=== PATIENT | female | born 1955 | race Caucasian/White ===

== ENCOUNTER → 2016-07-03 | Outpatient (CLI) | payer OTHER ==
[~2016-07-03] MED LIST: ABL/5 PO; ACET-1138 PO; APRE1TAB3 PO; ASCA500 PO; ASPI81TA28 PO; BUPRTAB PO; BUPRTAB51 PO; CALC500T68 PO; CLB/200 PO; CRAN500C2 PO; GUAI1TAB75 PO; LACTCAP3 PO; LAMO100T16 PO; LEVO75TA PO; LIDO5DIS10 TD; LORA1TAB13 PO; MORP-157 PO; MULTTAB58 PO; OMEGCAP2 PO; OMEP20CA9 PO; ONDA8TAB6 PO; POLY335040 PO; PRED10TA PO; RXC5 PO; SNK PO; SULF500T36 PO; VOLTAREN GEL TOP; [UNRECOGNIZED DRUG - CODE] PO
--- NOTE | 2016-07-03 16:39 | MAMMOGRAPHY REPORT ---
BILATERAL DIGITAL SCREENING MAMMOGRAM TOMOSYNTHESIS WITH CAD: 07/03/2016 CLINICAL HISTORY: Routine screening. Patient has no complaints. TECHNIQUE: Breast tomosynthesis in addition to standard 2D mammography was performed. Current study was also evaluated with a Computer Aided Detection (CAD) system. COMPARISON: Comparison is made to exams dated: 06/07/2015 mammogram, 01/13/2013 mammogram, 01/26/2014 mammogram, 01/13/2012 mammogram, 10/04/2010 mammogram, and 09/10/2009 mammogram - [facility]. BREAST COMPOSITION: The tissue of both breasts is heterogeneously dense, which may obscure small ma sses. FINDINGS: No suspicious masses, calcifications, or areas of architectural distortion are noted in e ither breast. There has been no significant interval change compared to prior exams. Scattered bilat eral benign-appearing calcifications are not significantly changed. Nodular asymmetry in the left l ateral breast middle depth on the cc view is stable dating back to at least the 2008 exam, and is co nsidered benign given long-term stability. IMPRESSION: ACR BI-RADS CATEGORY 2: BENIGN There is no mammographic evidence of malignancy. A 1 year screening mammogram is recommended. The p atient will receive written notification of the results. Approximately 10% of breast cancers are not detected with mammography. A negative mammographic repor t should not delay biopsy if a clinically suggestive mass is present. Jackie Kay M.D. /:07/03/2016 15:35:21 [employer] Consultant: Mendez HARRIS(Juliane)(Marina), [facility] letter sent: Normal 1/2 BI-RADS Code: ACR BI-RADS Category 2: Benign
== END | disposition home or self-care (01) ==
LOC: C.MAMM 13:22
PROVIDERS: ATTEND Obstetrics & Gynecology
DX: Z12.31 Encounter for screening mammogram for malignant neoplasm of breast (principal)

== ENCOUNTER 2016-07-14 09:12 | Inpatient (IN) | payer OTHER ==
[2016-06-19 15:02] VITALS: BMI 33.0
[2016-06-19 15:27] LABS: URINE APPEARANCE CLEAR (CLEAR); URINE BILIRUBIN NEG (NEG); URINE COLOR DK YELLOW; URINE NITRITE NEG (NEG); URINE PH 5.5 (4.5-7.5); URINE SPECIFIC GRAVITY 1.008 (1.000-1.030); UROBILINOGEN NEG (NEG); ZZUR CULT IF INDIC CLEAN CATCH NO
--- NOTE | 2016-06-19 15:34 | PAT Medication Instructions ---
Service Date Jun 19, 2016. Current Home Medication List Apremilast (Otezla), 30 MG PO BID Aripiprazole (Abilify), 5 MG PO BID Ascorbic Acid (Vitamin C), 500 MG PO BID Aspirin (Aspirin Ec), 81 MG PO QAM Biotin (Biotin Forte), 6,000 MCG PO QAM Bupropion Hcl (Wellbutrin Xl), 150 MG PO QAM Bupropion Hcl (Wellbutrin Xl), 300 MG PO QAM Calcium W/ Magnesium (Calcium/Magnesium), 1 TAB PO BID Celecoxib (CeleBREX), 200 MG PO BID Cranberry (Vaccinium Macrocarp (Cranberry), 500 MG PO BID Guaifenesin La (Guaifenesin Er), 1,200 MG PO Q12H Lactobacillus (Acidophilus), 100 MG PO QAM Lamotrigine (Lamictal), 300 MG PO HS Levothyroxine Sodium (Synthroid), 75 MCG PO QAM Lidocaine (Lidoderm Patch 5% Patch), 1-3 PATCH TD DAILY PRN for RN Lorazepam (Lorazepam), 1-2 MG PO DAILY PRN Multiple Vitamin (Multivitamin), 1 TABLET PO QAM Brinson-3 Fatty Acids (Fish Oil), 1 CAPSULE PO BID Omeprazole (Prilosec), 20 MG PO QAM Polyethylene (Miralax Powder Packet), 17 GM PO DAILY PRN Prednisone Tab (Prednisone), 10 MG PO QAM Sulfasalazine (Azulfidine), 1,500 MG PO BID [Voltaren Gel], 1 DOSE TOP PRN Medication Instructions For Your Scheduled Surgery - Hold the following medications 2 weeks prior to surgery: Cranberry (Vaccinium Macrocarp (Cranberry), 500 MG PO BID Brinson-3 Fatty Acids (Fish Oil), 1 CAPSULE PO BID Biotin (Biotin Forte), 6,000 MCG PO QAM - Hold the following medications 24 hours prior to surgery: [Voltaren Gel], 1 DOSE TOP PRN - May continue but NOT around operative area day of surgery: Lidocaine (Lidoderm Patch 5% Patch), 1-3 PATCH TD DAILY PRN - Hold the following medications the morning of surgery: Polyethylene (Miralax Powder Packet), 17 GM PO DAILY PRN Multiple Vitamin (Multivitamin), 1 TABLET PO QAM Celecoxib (CeleBREX), 200 MG PO BID (otherwise okay to continue per surgeon) Ascorbic Acid (Vitamin C), 500 MG PO BID Calcium W/ Magnesium (Calcium/Magnesium), 1 TAB PO BID Guaifenesin La (Guaifenesin Er), 1,200 MG PO Q12H Lactobacillus (Acidophilus), 100 MG PO QAM - Take the following medications the morning of surgery with a sip of water OTHERWISE NOTHING TO EAT OR DRINK AFTER MIDNIGHT: Aripiprazole (Abilify), 5 MG PO BID Prednisone Tab (Prednisone), 10 MG PO QAM Aspirin (Aspirin Ec), 81 MG PO QAM Bupropion Hcl (Wellbutrin Xl), 150 MG PO QAM Bupropion Hcl (Wellbutrin Xl), 300 MG PO QAM Lorazepam (Lorazepam), 1-2 MG PO DAILY PRN Omeprazole (Prilosec), 20 MG PO QAM Sulfasalazine (Azulfidine), 1,500 MG PO BID Levothyroxine Sodium (Synthroid), 75 MCG PO QAM Apremilast (Otezla), 30 MG PO BID - Take the following medications as scheduled the night before surgery: Aripiprazole (Abilify), 5 MG PO BID Celecoxib (CeleBREX), 200 MG PO BID Lamotrigine (Lamictal), 300 MG PO HS Ascorbic Acid (Vitamin C), 500 MG PO BID Calcium W/ Magnesium (Calcium/Magnesium), 1 TAB PO BID Guaifenesin La (Guaifenesin Er), 1,200 MG PO Q12H Sulfasalazine (Azulfidine), 1,500 MG PO BID Apremilast (Otezla), 30 MG PO BID If you have any questions please call us at [phone] (Rosanne Virgen PA-C) or [phone] or [phone]
[2016-06-19 15:45] LABS: BASO % 0.2 %; BASO ABS # 0.02 K/uL (0-0.2); COMPLETE YES; EOS % 0.4 %; HEMATOCRIT 33.2 % (37-47); IG% 0.5 %; LYMPH % 13.7 %; LYMPH ABS # 1.56 K/uL (1.2-3.4); MEAN CELL VOLUME 81.2 fL (80-100); MEAN CORPUSCULAR HEMOGLOBIN 26.4 pg (25-34); MEAN CORPUSCULAR HGB CONC 32.5 g/dl (32-36); MEAN PLATELET VOLUME 8.7 fL (7.4-10.4); MONO % 8.1 %; NEUT % 77.1 %; PLATELET COUNT 287 K/uL (130-400); RED BLOOD COUNT 4.09 M/uL (4.2-5.4); WHITE BLOOD COUNT 11.35 K/uL (4.8-10.8)
[2016-06-19 15:47] LABS: MANUAL MICROSCOPIC REQUIRED? NO; REVIEW REQ? NO
[2016-06-19 15:52] LABS: INR 1.1 (0.9-1.1); PARTIAL THROMBOPLASTIN RATIO 1.2; PROTHROMBIN TIME (PATIENT) 11.7 SECONDS (9.0-12.0)
[2016-06-19 16:17] LABS: BUN/CREATININE RATIO 26.6 (10-20); CALCIUM 9.1 mg/dl (8.5-10.1); CREATININE 0.77 mg/dl (0.60-1.20); POTASSIUM 4.4 mmol/L (3.5-5.1)
--- NOTE | 2016-07-07 07:13 | INTERNAL MEDICINE CONSULTATION ---
DATE OF CONSULTATION: 07/14/2016 PREOPERATIVE NOTE A 60-year-old female scheduled to undergo a left total knee arthroplasty by Dr. Zacarias Shay on 07/14/2016 because of severely advanced osteoarthritis. Her medical problems include: 1. Psoriatic arthritis. 2. Severe osteoarthritis. 3. She has had multiple orthopedic procedures including bilateral total hip arthroplasty and right total knee arthroplasty. 4. Bipolar disorder. 5. Osteoporosis. 6. Hypothyroidism. 7. Chronic steroid therapy. 8. Gastroesophageal reflux. CURRENT MEDICATIONS: Include: 1. Abilify 5 mg twice a day. 2. Vitamin C 500 mg twice a day. 3. Aspirin 81 mg daily. 4. Wellbutrin-XL 150 mg daily. 5. Wellbutrin-XL 300 mg every morning also for a combination of 450 mg daily. 6. Celebrex 200 mg twice a day. 7. Guaifenesin ER 1200 mg twice a day. 8. Lamictal 100 mg tablets, she takes 300 mg at bedtime. 9. Levothyroxine 75 mcg daily. 10. Lidoderm 5% patch to apply to affected area, 1-3 patch daily as needed. 11. Lorazepam 1 mg 1-2 tablets as needed. 12. Multivitamin 1 daily. 13. MiraLax 17 grams daily as needed. 14. Prednisone 10 mg daily. 15. Sulfasalazine 500 mg tablet, she takes 3 tablets twice a day or 1500 mg twice a day. 16. Otezla 30 mg twice a day. 17. Biotin 6000 mcg daily. 18. Calcium with magnesium 1 tablet twice a day. 19. Cranberry 500 mg twice a day. 20. Lactobacillus 1 capsule of 100 mg daily. 21. [place]-3 fatty acid 1 capsule twice a day. 22. Omeprazole 20 mg daily. 23. Voltaren gel to apply to affected painful joint daily. 24. Keflex 500 mg 4 times a day which is being treated for cellulitis of the left lower leg secondary to recent injury. Overall, she is doing quite well. She denied any headache. No dizziness, no lightheadedness. No earache, no sore throat, no neck pain. Denied any chest pain, pressure or tightness. No shortness of breath. No abdominal pain, no nausea, no vomiting. No problem with her bowel movements. No problem urinating. She does have chronic pain in her back and joints. PHYSICAL EXAMINATION: GENERAL: Well developed, in no distress. Weight 194 pounds, height 64 inches, BMI 33.3. VITAL SIGNS: Blood pressure 128/70, pulse 88 and regular, temperature 97.8. SKIN: Warm and dry. No evidence of any rash. HEENT: She does wear glasses. She has had prior cataract surgery. Normal oronasal and pharyngeal mucosa. Ears were normal. NECK: Supple without any adenopathy or thyromegaly. No JVD. Normal carotid pulses. No carotid bruit. HEART: Regular heart sounds without any murmur, rub or gallop. LUNGS: Clear. Normal breath sounds. ABDOMEN: Soft, nontender, without organomegaly or masses. BACK: No spinal tenderness. EXTREMITIES: Minimal chronic edema. No clubbing, no cyanosis. Multiple surgical scars related to prior orthopedic procedures. Good pulses. NEUROLOGIC: She is alert and oriented. There is no evidence of any lateralized deficit. LABORATORY TESTS: Done on 06/19/2016, WBC count 11,350, hemoglobin 10.8, hematocrit 33.2, platelet count 287,000. Prothrombin time 11.7, INR 1.1, PTT 30.6. Sodium 141, potassium 4.4, chloride 105, CO2 26, BUN 21, creatinine 0.77, glucose 114, this is a random number, calcium 8.1, albumin 3.1. ASSESSMENT: 1. Preoperative evaluation. 2. The patient is scheduled for a left total knee arthroplasty on 07/14/2016. 3. Recent cellulitis of the left lower leg, but on examination today there is no finding of any inflammation, whatsoever. 4. Psoriatic arthritis. 5. Bipolar disorder. 6. Hypothyroidism. 7. Gastroesophageal reflux. PLAN: 1. All her laboratory tests have been reviewed. 2. Her cellulitis is completely resolved. 3. The patient is scheduled for surgery, she had all her preoperative tests, she is in a stable condition and I do not see any contraindication to her anticipated surgery.
--- NOTE | 2016-07-11 15:30 | HISTORY & PHYSICAL EXAMINATION ---
DATE OF ADMISSION: 07/14/2016 CHIEF COMPLAINT: Left knee pain. HISTORY OF PRESENT ILLNESS: Ms. Kendall is a 60-year-old female with a multiple-year history of pain in her left knee. The patient rates her pain a 9/10. She has had various treatments over the years including anti-inflammatories and injections without relief. She has failed conservative treatment and is scheduled for her left knee replacement. PAST MEDICAL HISTORY: Anxiety, bipolar disorder, thyroid disease. She denies heart disease, diabetes or DVT. PAST SURGICAL HISTORY: Bilateral total hip arthroplasty, right total knee replacement, tubal ligation. SOCIAL HISTORY: The patient denies alcohol or tobacco use. She lives in a single story home. She lives alone and is retired. FAMILY HISTORY: Negative for DVT. Positive for CVA. MEDICATIONS: Prednisone 10 mg daily, Celebrex 200 mg daily, sulfasalazine 500 mg 3 tablets b.i.d., Otezla 30 mg b.i.d., Lidoderm 5% 3 patches daily as needed, Voltaren gel 4 grams daily on lower extremities, Abilify 10 mg half tablet b.i.d., Wellbutrin 450 mg daily, Lamictal 300 mg at bedtime, Ativan 1 mg p.r.n., Prilosec 20 mg daily, levothyroxine 75 mcg daily, aspirin 81 mg daily, multivitamin, calcium, magnesium, vitamin C, fish oil, acidophilus, cranberry, biotin, MiraLax. ALLERGIES: LASIX, EFFEXOR AND LITHIUM. REVIEW OF SYSTEMS: See HPI. Ten other systems reviewed, all negative. PHYSICAL EXAMINATION: VITAL SIGNS: Height 5 foot 4, weight 192 pounds, BMI not calculated. GENERAL: This is a well-developed, well-nourished female who is alert and oriented x3. Mood and affect are appropriate. HEAD, EYES, EARS, NOSE, AND THROAT: Normocephalic, atraumatic. Mucous membranes are moist and intact. NECK: Supple without lymphadenopathy. HEART: Regular rate and rhythm without murmurs, rubs or gallops. LUNGS: Clear to auscultation without wheezes or rhonchi. ABDOMEN: Soft and nontender. Bowel sounds are equal and active. EXTREMITIES: No ecchymosis, redness or warmth. She has a valgus deformity. Range of motion is from 5-115 with +2 laxity bilaterally. She is neurovascularly intact with +5/5 strength. She does have some cellulitis distally at the time of exam, she has moderate edema. X-RAY EXAMINATION: AP and lateral views show joint space narrowing and osteophyte formation. IMPRESSION: Degenerative joint disease left knee. PLAN: The patient will be admitted for a left total knee arthroplasty. She will require steroid prep preoperatively. PCP is Dr. Orr. She is planning to go to [facility] upon discharge.
[~2016-07-14] VITALS: Ht 162.6 cm; Wt 87.2 kg
[2016-07-14] VITALS (7 sets, daily range): BP systolic 127–164; BP diastolic 77–88; PULSE 76–92; TEMP 36.4–36.8; O2SAT 94–98; Ht 162.6 cm; Wt 87.2 kg
[~2016-07-14 09:12] MED LIST changes: -ACET-1138 PO; +ACETAMINOPHEN 500 MG TAB PO SCH; +ARIPIprazole TAB 5 MG TAB PO SCH; +BUPIVACAINE 0.25% 30 ML VIAL ONE; +BUPIVACAINE 0.5 % 5 MG/1 ML PF 10ML VIAL ONE; +BuPROPion XL 150 MG TABCR PO SCH; +CEFAZOLIN 2000 MG/60 ML D5W 60 ML IV SCH; +CeleBREX 200 MG CAP PO SCH; +FAMOTIDINE 20 MG TAB PO SCH; +FENTANYL CITRATE INJ 50 MCG/1 ML 2 ML VIAL ONE; +GABAPENTIN 300 MG CAP PO SCH; +HYDROCORTISONE IV 100 MG in SYRINGE 0 ML IV SCH; +LACTATED RINGER'S 1000ML 1,000 ML IV SCH; +LACTATED RINGER'S 1000ML 500 ML IV ONE; +LACTATED RINGER'S 1000ML IV SCH; +LIDOCAINE HCL 2% 2 ML VIAL (20MG/ML) ONE; +METOCLOPRAMIDE HCL 10 MG TAB PO SCH; +MIDAZOLAM HCL 1 MG/ML 2ML VIAL ONE; -MORP-157 PO; -ONDA8TAB6 PO; +ONDANSETRON INJ 2 MG/ML 2 ML VIAL ONE; +OXYCODONE HCL 10 MG TABCR (OXYCONTIN) PO SCH; +POLYMYXIN B SULFATE 100,000 UNITS in NSS 100ML IR SCH; +PROPOFOL IV EMULSION 10 MG/ML 20 ML VIAL IV ONE; +ROPIVACAINE 5MG/ML 30 ML 150 MG, BUPIVACAINE/EPINEPHR 0.5% MPF 30 ML, KETOROLAC TROMETH... INFIL SCH; -RXC5 PO; -SNK PO; +VANCOMYCIN INJ 400 MG in NSS 100ML IR SCH
--- NOTE | 2016-07-14 11:20 | History & Physical Bridge Note ---
H&P Re-Evaluation Bridge Note: I have examined the patient, reviewed the History & Physical and in the interval since the performance of the History & Physical I have noted the following changes of clinical significance: No changes noted
[2016-07-14] MEDS ORDERED: ORTHO JOINT ANESTHETIC ONE (11:55)
[2016-07-14] MEDS: TRANEXAMIC ACID INJ 1,000 MG in SODIUM CHLORIDE 0.9% 100ML 100 ML IV SCH ×2 (12:03→16:53)
[2016-07-14] MEDS ORDERED: PHENYLEPHRINE 100MCG/ML 5ML SYR ONE (12:50)
[2016-07-14] MEDS ORDERED: EpHEDrine SULFATE 50MG/5ML SYR ONE (12:50)
[2016-07-14] MEDS ORDERED: BACITRACIN 50000 UNIT VIAL IR ONE ×2 (13:12→13:47)
[2016-07-14] MEDS ORDERED: BUPIVACAINE/EPINEPHRINE 0.25% 1:200,000 30 ML VIAL INJ ONE (13:47)
[2016-07-14] MEDS ORDERED: POVIDONE-IODINE OP SOLN 30 ML BTL TOP ONE (13:47)
--- NOTE | 2016-07-14 13:57 | [facility] Post Operative Brief Note ---
Immediate Operative Summary Operative Date Jul 14, 2016. Pre-Operative Diagnosis Degenerative Joint Disease Left Knee Post-Operative Diagnosis Degenerative Joint Disease Left Knee Procedure(s) Performed Left Total Knee Arthroplasty with Legion Stems Surgeon Dr. Marlo Shay Gifted Program Teacher Surgeon(s) FLACO Dean Estimated Blood Loss 5 ml Findings SEVERE DZ Specimens A. Left Knee Bone and Tissue Complication(s) None Disposition Recovery Room / PACU
[2016-07-14] MEDS ORDERED: DiphenhydrAMINE HCL 50 MG/ML VIAL IV PRN (14:00)
[2016-07-14] MEDS ORDERED: METOCLOPRAMIDE HCL INJ 5 MG/ML 2 ML VIAL IV PRN (14:00)
[2016-07-14] MEDS ORDERED: ALUMINUM/MAGNESIUM/SIMETH (MAALOX MAX) 30 ML UDC PO PRN (14:00)
[2016-07-14] MEDS ORDERED: LORAZEPAM 1 MG TAB PO PRN (14:00)
[2016-07-14] MEDS ORDERED: BISACODYL 10 MG SUPP PR PRN (14:00)
[2016-07-14] MEDS ORDERED: ZOLPIDEM TARTRATE 5 MG TAB PO PRN (14:00)
[2016-07-14] MEDS ORDERED: SOD PHOSPHATE/SOD BIPHOSPHATE ENEMA 132 ML BTL PR PRN (14:00)
[2016-07-14] MEDS ORDERED: MAGNESIUM HYDROXIDE SUSP 30 ML UDC PO PRN (14:00)
[2016-07-14] MEDS ORDERED: ONDANSETRON INJ 2 MG/ML 2 ML VIAL IV PRN ×2 (14:00→14:45)
[2016-07-14] MEDS ORDERED: POLYETHYLENE (MIRALAX) 17 GM PACK PO PRN (14:30)
[2016-07-14] MEDS ORDERED: FENTANYL CITRATE INJ 50 MCG/1 ML 2 ML VIAL ONE ×2 (14:44→15:05)
[2016-07-14] MEDS ORDERED: HYDROmorphone INJ 1 MG/ML SYR IV PRN (14:45)
[2016-07-14] MEDS ORDERED: MEPERIDINE HCL 25 MG/ML CARP IV PRN (14:45)
[2016-07-14] MEDS ORDERED: LABETALOL HCL IV 5 MG/ML 20ML IV PRN (14:45)
[2016-07-14] MEDS ORDERED: ATROPINE SULFATE 0.1 MG/ML 5ML SYR IV PRN (14:45)
[2016-07-14] MEDS ORDERED: FENTANYL CITRATE INJ 50 MCG/1 ML 2 ML VIAL IV PRN (14:45)
[2016-07-14] MEDS ORDERED: EpHEDrine SULFATE INJ 50 MG/ML AMP IV PRN (14:45)
--- NOTE | 2016-07-14 14:50 | DIAGNOSTIC IMAGING REPORT ---
LEFT KNEE 1 OR 2 VIEWS ROUTINE CLINICAL HISTORY: Left knee degenerative arthritis. Arthroplasty. COMPARISON: Left knee radiographs January 03, 2011 FINDINGS: Alignment of the longstem left knee arthroplasty is anatomic. There is no fracture or unexpected radiopaque foreign body. Drains and skin karishma are present. IMPRESSION: Expected findings following left knee arthroplasty. Electronically signed by: Goldy Fonseca M.D. 07/14/2016 2:48 PM Dictated Date/Time: 07/14/2016 2:47 PM
--- NOTE | 2016-07-14 15:29 | Anesthesiology Progress Note ---
Anesthesia Post Op Note Date & Time Jul 14, 2016 at 15:29 Vital Signs Pain Intensity: 2 Vital Signs Past 12 Hours Date Time Temp Pulse Resp B/P Pulse Ox O2 Delivery O2 Flow Rate FiO2 07/14/16 15:22 36.7 86 16 144/75 97 Nasal Cannula 3 07/14/16 15:15 83 14 96 07/14/16 15:15 82 14 07/14/16 15:13 156/74 07/14/16 15:10 81 15 07/14/16 15:10 81 15 98 07/14/16 15:08 134/74 07/14/16 15:05 85 9 07/14/16 15:05 84 9 99 07/14/16 15:03 124/68 07/14/16 15:00 16 07/14/16 15:00 87 16 07/14/16 14:58 128/69 07/14/16 14:55 83 13 99 07/14/16 14:55 83 13 07/14/16 14:53 131/77 07/14/16 14:50 80 12 07/14/16 14:50 80 12 89 07/14/16 14:48 131/76 07/14/16 14:45 81 17 07/14/16 14:45 80 17 95 07/14/16 14:43 140/75 07/14/16 14:40 78 15 07/14/16 14:40 77 15 97 07/14/16 14:38 123/76 07/14/16 14:35 77 15 07/14/16 14:35 77 15 99 07/14/16 14:33 123/77 07/14/16 14:30 78 18 07/14/16 14:30 78 18 98 07/14/16 14:29 130/63 07/14/16 14:25 81 13 97 07/14/16 14:25 81 13 07/14/16 14:23 131/76 07/14/16 14:20 85 19 97 07/14/16 14:20 36.4 90 16 99/56 94 Nasal Cannula 2 07/14/16 14:20 84 19 07/14/16 09:50 36.4 76 20 149/88 97 Room Air Notes Mental Status: alert / awake / arousable, participated in evaluation Pt Amnestic to Procedure: Yes Nausea / Vomiting: adequately controlled Pain: adequately controlled Airway Patency, RR, SpO2: stable & adequate BP & HR: stable & adequate Hydration State: stable & adequate Neuraxial Anesthesia: was administered, sensory block is resolving Anesthetic Complications: no major complications apparent
[2016-07-14] MEDS: D5W AND 1/2NSS + 20MEQ KCL 1,000 ML IV SCH (16:54)
[2016-07-14] MEDS: ACETAMINOPHEN 500 MG TAB PO SCH ×2 (16:55→21:36)
[2016-07-14] MEDS: SULFASALAZINE 500 MG TAB PO SCH (16:56)
[2016-07-14] MEDS: OXYCODONE HCL IR 5 MG TAB (IMMEDIATE RELEASE) PO PRN (18:53)
--- NOTE | 2016-07-14 18:58 | OPERATIVE REPORT ---
DATE OF OPERATION: 07/14/2016 PREOPERATIVE DIAGNOSIS: Severe inflammatory arthritis, left knee. POSTOPERATIVE DIAGNOSIS: Same. PROCEDURE: Left total knee using revision components. SURGEON: Dr. Shay. PROMOTIONAL ADVERTISING ASSISTANT: FLACO Dean. ANESTHESIA: Spinal. TOURNIQUET TIME: 80 minutes at 250 mmHg. DRAINS: Hemovac x2. CULTURES: None. COMPLICATIONS: None. COMPONENTS USED: Johnson \T\ Nephew Legion revision knee components. Femur size 5 with 6 mm offset, 18 x 120 cemented stem. Tibia size 4, 6 mm offset, 16 x 120 stem. Tibial insert 9 constrained. Patella size 29. NOTE: FLACO Dean was present and assisted throughout due to the complicated nature of this case. She helped with preparation and setup, first assisted and personally closed the capsule, subcutaneous and skin layers and applied the postoperative dressing. DESCRIPTION: Following satisfactory spinal, the patient was supine. A tourniquet was placed. The lower extremity was prepared with ChloraPrep and draped sterilely. Following a surgical time-out, a midline incision was made with a median parapatellar arthrotomy. The knee showed severe chronic synovitis and severe erosive changes involving all 3 compartments. The anterior cruciate ligament was absent. Using the IM reaming system, the femur was resected with a 6-degree valgus cut, was then sized and shaped for the size 5 posterior stabilized component. The IM reaming system was then used to shape the tibia with neutral resection. Soft tissue balancing was completed and the patella was freehand cut and sized. A trial reduction showed good tension and stability on the collateral ligaments, stable range of motion, and the patella tracked well. The trial components were removed. The capsule was prepared with the orthopedic cocktail and after irrigation, the components were cemented using Simplex G cement. A Betadine soak was then performed. When the cement had hardened, the Betadine was irrigated. Two drains were placed. The arthrotomy was closed with interrupted [id number] sutures of 1 Vicryl and reinforced with #2 FiberWire. Following irrigation, the subcutaneous tissues were closed with 2-0 Vicryl. The skin was closed with surgical karishma. A surface wound VAC was applied. The tourniquet was deflated. The patient was returned to her bed in stable condition. I attest to the content of the Intraoperative Record and any orders documented therein. Any exceptio ns are noted below.
[2016-07-14] MEDS: HYDROCORTISONE IV 100 MG in SYRINGE 0 ML IV SCH (19:31)
[2016-07-14] MEDS: CEFAZOLIN IV 2,000 MG in DEXTROSE 5% 50ML 50 ML IV SCH (19:31)
[2016-07-14] MEDS ORDERED: TRANEXAMIC ACID INJ 1,000 MG in SODIUM CHLORIDE 0.9% 100ML 100 ML IV SCH (20:30)
[2016-07-14] MEDS: OXYCODONE HCL 10 MG TABCR (OXYCONTIN) PO SCH (21:19)
[2016-07-14] MEDS: ASCORBIC ACID 500 MG TAB PO SCH (21:20)
[2016-07-14] MEDS: ARIPIprazole TAB 5 MG TAB PO SCH (21:20)
[2016-07-14] MEDS: ASPIRIN 81 MG ECTAB PO SCH (21:22)
[2016-07-14] MEDS: SENNA 8.6 MG TAB PO SCH (21:22)
[2016-07-14] MEDS: MoRPHine SULFATE 2 MG/ML CARP IV PRN (21:24)
--- NOTE | 2016-07-14 23:09 | PROGRESS NOTE ---
DATE: 07/14/2016 HISTORY OF PRESENT ILLNESS: A 60-year-old female admitted early this morning by Dr. Zacarias Shay after undergoing a left total knee arthroplasty for severe osteoarthritis. The patient with multiple medical problems includin. Psoriatic arthritis. 2. Severe osteoarthritis. 3. Has had prior right total knee arthroplasty and bilateral total hip arthroplasties in the past for severe osteoarthritis. 4. Bipolar disorder. 5. Hypothyroidism. 6. Chronic steroid therapy. 7. Gastroesophageal reflux. The patient tolerated the procedure well. I saw her this afternoon after her surgery. She was sitting up in bed eating her meal. She denied any headache or dizziness. No chest pain, no shortness of breath. No abdominal pain, no nausea, no vomiting. She is tolerating her diet well. No back pain. Her pain is under control. PHYSICAL EXAMINATION: GENERAL: Well developed in no distress. VITAL SIGNS: Blood pressure 141/77, pulse 92, respirations 18, temperature 36.4, oxygen saturation 94% on 2 liter oxygen by nasal cannula. SKIN: Warm and dry. No rash. HEENT: She does wear glasses. NECK: No adenopathy, no thyromegaly. HEART: Regular heart sounds. LUNGS: Clear. ABDOMEN: Soft, nontender. EXTREMITIES: Surgical dressing left knee with a drain in place. ASSESSMENT: 1. Status post left total knee arthroplasty. 2. Osteoarthritis. 3. Bipolar disorder. 4. Psoriatic arthritis. 5. Osteoarthritis. PLAN: 1. Overall, she is doing quite well. Her procedure was well tolerated. She is not having any pain. She is tolerating her diet and she is resting comfortably. 2. Continue the same medications. 3. Therapies as ordered. 4. As happened in the past after each of her joint replacements, the patient will be needing to go to [facility] for recovery and for her therapy.
[2016-07-15] VITALS (7 sets, daily range): BP systolic 137–155; BP diastolic 56–82; PULSE 76–104; TEMP 36.5–36.9; O2SAT 94–100
[2016-07-15] MEDS: HYDROCORTISONE IV 100 MG in SYRINGE 0 ML IV SCH (01:54)
[2016-07-15] MEDS: D5W AND 1/2NSS + 20MEQ KCL 1,000 ML IV SCH ×2 (01:55→12:17)
[2016-07-15] MEDS: CEFAZOLIN IV 2,000 MG in DEXTROSE 5% 50ML 50 ML IV SCH (03:49)
[2016-07-15] MEDS: OXYCODONE HCL IR 5 MG TAB (IMMEDIATE RELEASE) PO PRN ×2 (03:52→19:19)
[2016-07-15] MEDS: LEVOTHYROXINE 75 MCG TAB PO SCH (05:33)
[2016-07-15] MEDS: ACETAMINOPHEN 500 MG TAB PO SCH ×3 (05:34→21:49)
[2016-07-15 06:52] LABS: HEMATOCRIT 33.1 % (37-47); MEAN CELL VOLUME 82.5 fL (80-100); MEAN CORPUSCULAR HEMOGLOBIN 26.7 pg (25-34); MEAN CORPUSCULAR HGB CONC 32.3 g/dl (32-36); MEAN PLATELET VOLUME 8.5 fL (7.4-10.4); PLATELET COUNT 224 K/uL (130-400); RED BLOOD COUNT 4.01 M/uL (4.2-5.4)
[2016-07-15 07:22] LABS: BUN/CREATININE RATIO 15.2 (10-20); CALCIUM 8.1 mg/dl (8.5-10.1); CREATININE 0.81 mg/dl (0.60-1.20); POTASSIUM 3.8 mmol/L (3.5-5.1)
[2016-07-15] MEDS: KETOROLAC TROMETHAMINE 30 MG/ML VIAL IV. PRN (07:27)
--- NOTE | 2016-07-15 08:05 | Orthopedic Progress Note ---
Orthopedic Progress Note Date of Service Jul 15, 2016. Subjective Post OP Day: 1 Reports: feeling well, pain controlled w PO medications, Denies: SOB, complaints , light headedness, nausea / vomiting Objective calves soft nontender, N/V intact, dressing C/D/I, A&O x3, toes mobile, hemovac drainage (150 last shift ) Date Time Temp Pulse Resp B/P Pulse Ox O2 Delivery O2 Flow Rate FiO2 07/15/16 06:55 36.6 82 17 155/56 98 Room Air 07/15/16 05:34 94 Room Air 07/15/16 02:55 36.5 78 16 149/79 100 Nasal Cannula 2.0 07/14/16 23:35 Nasal Cannula 2.0 07/14/16 22:57 36.6 78 17 151/82 98 Nasal Cannula 2.0 07/14/16 18:50 36.8 89 18 141/83 98 Nasal Cannula 2.0 07/14/16 17:51 36.5 85 18 164/85 95 Nasal Cannula 2.0 07/14/16 16:49 36.4 92 18 141/77 94 Nasal Cannula 2.0 07/14/16 16:24 36.7 88 16 148/83 96 Nasal Cannula 2.0 07/14/16 15:50 98 Nasal Cannula 2.0 07/14/16 15:50 98 Nasal Cannula 2.0 07/14/16 15:50 36.4 88 16 127/77 98 Nasal Cannula 2.0 07/14/16 15:36 84 16 97 07/14/16 15:36 84 16 07/14/16 15:33 135/85 07/14/16 15:31 83 16 07/14/16 15:31 82 16 97 07/14/16 15:28 145/80 07/14/16 15:26 88 19 98 07/14/16 15:26 88 19 07/14/16 15:23 144/75 07/14/16 15:22 36.7 86 16 144/75 97 Nasal Cannula 3 07/14/16 15:21 85 12 07/14/16 15:21 84 12 97 07/14/16 15:18 151/70 07/14/16 15:16 83 12 07/14/16 15:16 84 12 95 07/14/16 15:15 83 14 96 07/14/16 15:15 82 14 07/14/16 15:13 156/74 07/14/16 15:10 81 15 07/14/16 15:10 81 15 98 07/14/16 15:08 134/74 07/14/16 15:05 85 9 07/14/16 15:05 84 9 99 07/14/16 15:03 124/68 07/14/16 15:00 16 07/14/16 15:00 87 16 07/14/16 14:58 128/69 07/14/16 14:55 83 13 99 07/14/16 14:55 83 13 07/14/16 14:53 131/77 07/14/16 14:50 80 12 07/14/16 14:50 80 12 89 07/14/16 14:48 131/76 07/14/16 14:45 81 17 07/14/16 14:45 80 17 95 07/14/16 14:43 140/75 07/14/16 14:40 78 15 07/14/16 14:40 77 15 97 07/14/16 14:38 123/76 07/14/16 14:35 77 15 07/14/16 14:35 77 15 99 07/14/16 14:33 123/77 07/14/16 14:30 78 18 07/14/16 14:30 78 18 98 07/14/16 14:29 130/63 07/14/16 14:25 81 13 97 07/14/16 14:25 81 13 07/14/16 14:23 131/76 07/14/16 14:20 85 19 97 07/14/16 14:20 36.4 90 16 99/56 94 Nasal Cannula 2 07/14/16 14:20 84 19 07/14/16 09:50 36.4 76 20 149/88 97 Room Air Laboratory Results 24 Hours: Test 07/15/16 06:42 Hematocrit 33.1 % Hemoglobin 10.7 g/dL Assessment & Plan Assessment: POD 1 TKA HX ANXIETY BIUPOLAR Plan: PLAN FOR [facility] LIKELY THURSDAY Discharge Planning Discharge Planning: rehab hospital Pain Management: Celebrex, Oxycontin, PO Tylenol, Oxy IR DVT Prophylaxis: TEDs, SCDs, ASA Therapy: Physical Therapy
--- NOTE | 2016-07-15 08:05 | Anesthesiology Progress Note ---
Anesthesia Post Op Note Date & Time Jul 15, 2016 at 08:05 Vital Signs Pain Intensity: 7.0 Vital Signs Past 12 Hours Date Time Temp Pulse Resp B/P Pulse Ox O2 Delivery O2 Flow Rate FiO2 07/15/16 06:55 36.6 82 17 155/56 98 Room Air 07/15/16 05:34 94 Room Air 07/15/16 02:55 36.5 78 16 149/79 100 Nasal Cannula 2.0 07/14/16 23:35 Nasal Cannula 2.0 07/14/16 22:57 36.6 78 17 151/82 98 Nasal Cannula 2.0 Notes Mental Status: alert / awake / arousable, participated in evaluation Pt Amnestic to Procedure: Yes Nausea / Vomiting: adequately controlled Pain: adequately controlled Airway Patency, RR, SpO2: stable & adequate BP & HR: stable & adequate Hydration State: stable & adequate Neuraxial Anesthesia: sensory block resolved Anesthetic Complications: no major complications apparent
[2016-07-15] MEDS: MULTIVITAMIN TAB PO SCH (08:59)
[2016-07-15] MEDS: BuPROPion XL 150 MG TABCR PO SCH (08:59)
[2016-07-15] MEDS: ASPIRIN 81 MG ECTAB PO SCH ×2 (08:59→20:52)
[2016-07-15] MEDS: PANTOprazole SOD 40 MG TAB PO SCH (08:59)
[2016-07-15] MEDS: SULFASALAZINE 500 MG TAB PO SCH ×2 (08:59→18:17)
[2016-07-15] MEDS: OXYCODONE HCL 10 MG TABCR (OXYCONTIN) PO SCH ×2 (08:59→20:52)
[2016-07-15] MEDS: ASCORBIC ACID 500 MG TAB PO SCH ×2 (08:59→20:53)
[2016-07-15] MEDS: BuPROPion XL 300 MG TABCR PO SCH (09:00)
[2016-07-15] MEDS: ARIPIprazole TAB 5 MG TAB PO SCH ×2 (09:52→20:54)
[2016-07-15] MEDS: MoRPHine SULFATE 2 MG/ML CARP IV PRN (20:23)
[2016-07-15] MEDS: OTEZLA 30 MG PO SCH (20:53)
[2016-07-15] MEDS: SENNA 8.6 MG TAB PO SCH (21:48)
--- NOTE | 2016-07-15 23:55 | PROGRESS NOTE ---
DATE: 07/15/2016 SUBJECTIVE: A 60-year-old female underwent a left total knee arthroplasty because of severe osteoarthritis. She has had prior joint arthroplasties including both hips and right knee. She has bipolar disorder and she also is treated for psoriatic arthritis. Overall, her condition has improved. She is doing quite well. She is recovering very nicely. She was sitting at the edge of the bed. She is not having any pain. We are anticipating transfer to [facility], possibly tomorrow.
[2016-07-16] MEDS: OXYCODONE HCL IR 5 MG TAB (IMMEDIATE RELEASE) PO PRN ×2 (04:21→16:52)
[2016-07-16] MEDS: LEVOTHYROXINE 75 MCG TAB PO SCH (05:38)
[2016-07-16] MEDS: ACETAMINOPHEN 500 MG TAB PO SCH (05:39)
[2016-07-16] MEDS: KETOROLAC TROMETHAMINE 30 MG/ML VIAL IV. PRN (07:16)
[2016-07-16 08:06] VITALS: BP 169/82; PULSE 89; TEMP 36.4; O2SAT 97
--- NOTE | 2016-07-16 08:45 | Discharge Instructions ---
Discharge Instructions Admission Reason for Admission: Left Knee Degenerative Arthritis Discharge Discharge Diagnosis / Problem: SP LEFT TKA Discharge Goals Goal(s): Decrease discomfort, Improve function, Increase independence Activity Recommendations Activity Limitations: per Instructions/Follow-up section . Instructions / Follow-Up Instructions / Follow-Up ACTIVITY RECOMMENDATIONS: SELF CARE INSTRUCTIONS AFTER TOTAL KNEE REPLACEMENT A. You may need to continue a physical therapy program after discharge from the hospital. There are several options available to you. Your doctor will assist you in selecting the best one for you. 1. An out-patient facility 2 to 3 times a week for therapy or home therapy. 2. Continue working on all exercises taught to you in the hospital. Your goals should be to increase bending of your knee to 90 degrees and beyond and to fully straighten your knee. B. You may progress at your own pace from walking with a walker or crutches to a cane; then to no assistive devices. C. Make walking a part of your daily routine. Be up as much as comfortable with rest periods throughout the day. Rest with leg elevation is very important. Use the ice wrap frequently for the first 3-4 weeks. D. There are no restrictions on activities. You may ride in a car, shop, participate in yardage caller and all social activities. E. Wear the long elastic stockings (EMILIANA hose) 20 hours a day for 2 weeks after surgery. They can be removed several times a day for laundering and for a bath. F. You may shower, no tub baths until cleared by your doctor. SPECIAL CARE INSTRUCTIONS: VERY IMPORTANT TO READ AND REVIEW A. There are a few signs you need to watch for after you are home. Call [facility] if you notice any of the followin. Increased severe knee pain. Some pain is expected especially when you exercise. 2. Increased swelling in your leg or knee; pain or swelling of the calf muscle in either lower leg. 3. Any fluid drainage from the incision. 4. Shortness of breath or chest pain. B. Please call [facility] at if you have any concerns or questions about your operation or recovery. The doctor or his nurse will return your call promptly. C. You must take antibiotics before dental work, bladder, bowel or other surgery. Your doctor will provide you with a permanent care to carry describing this precaution. IMPORTANT: * REMEMBER TO TAKE ASPIRIN, 81 MG, TWICE DAILY FOR 4 WEEKS UNLESS OTHERWISE DIRECTED. THIS IS YOUR BLOOD THINNER. * HIGH RISK PATIENTS MAY BE PRESCRIBED A STRONGER BLOOD THINNER. THIS WILL BE PROVIDED AT DISCHARGE. * CALL IF INCREASED PAIN, REDNESS, DRAINAGE OR FEVER GREATER THAT 101. * WEAR EMILIANA HOSE 20 HOURS PER DAY FOR 2 WEEKS. Prevena- This is a large suction dressing covering your incision. This will help pull any excess drainage from the wound and allow your incision to heal properly. You may shower with this if you can keep the unit outside of the shower. If any bleeding or leakage is noted please call your doctor's office. This will remain on your incision for 7 days and then should be removed. This can be done yourself or by the home nursing staff if applicable. The entire unit is disposable once removed. Once removed, keep incision clean and dry. If redness or drainage is noted, please call your surgeon. FOLLOW UP VISIT: If appointment is not already scheduled: Please call [facility] to make a follow-up appointment for 2 weeks after your surgery at . Current Hospital Diet Patient's current hospital diet: Regular Diet Discharge Diet Recommended Diet: Regular Diet Procedures Procedures Performed: Left Total Knee Arthroplasty with Legion Stems Pending Studies Studies pending at discharge: no Medical Emergencies . Who to Call and When: Medical Emergencies: If at any time you feel your situation is an emergency, please call 911 immediately. . Non-Emergent Contact Non-Emergency issues call your: Primary Care Provider . "Provider Documentation" section prepared by Radha Hooper. VTE Core Measure Inpt VTE Proph given/why not?: Other Anticoagulation, T.E.D. Stockings, SCD's
[2016-07-16] MEDS ORDERED: ONDA8TAB6 PO (08:48)
[2016-07-16] MEDS ORDERED: MORP-157 PO (08:48)
[2016-07-16] MEDS ORDERED: SNK PO (08:48)
[2016-07-16] MEDS ORDERED: ACET-1138 PO (08:48)
[2016-07-16] MEDS ORDERED: CLB/200 PO (08:48)
[2016-07-16] MEDS ORDERED: ASPI81TA28 PO (08:48)
[2016-07-16] MEDS ORDERED: RXC5 PO (08:48)
--- NOTE | 2016-07-16 08:54 | DISCHARGE SUMMARY ---
DISCHARGE DIAGNOSIS: Degenerative joint disease, left knee. SECONDARY DIAGNOSIS: None. CONSULTS: Dr. Orr. COMPLICATIONS: None. PROCEDURE: The patient underwent a left total knee arthroplasty by Dr. Shay. BRIEF HISTORY: Please see previously dictated history and physical. HOSPITAL SUMMARY: The patient was admitted on the above day for the above procedure. Procedure went without complication. Postop day 1, the patient was feeling well without complaints. She denied chest pain or shortness of breath. Vital signs were stable. She was afebrile. Dressing was clean, dry and intact. She was neurovascularly intact. Calves were soft and nontender. Hemovac drained 150 mL. Hemoglobin was 10.7. The patient began physical therapy per protocol. Referral was placed to [facility]. Postop day 2, the patient was improving. She was having more pain today probably due to overuse yesterday. The patient states she was sitting on her feet most of the day. Vital signs were stable. She was afebrile. Dressing was clean, dry and intact. She was neurovascularly intact. Calves were soft and nontender. The patient continued to progress with physical therapy. She was discharged to home later that day in stable condition. For further review, please see the chart. Lab, x-ray data and discharge instructions as per chart.
[2016-07-16] MEDS: PANTOprazole SOD 40 MG TAB PO SCH (09:17)
[2016-07-16] MEDS: MULTIVITAMIN TAB PO SCH (09:18)
[2016-07-16] MEDS: BuPROPion XL 150 MG TABCR PO SCH (09:18)
[2016-07-16] MEDS: OXYCODONE HCL 10 MG TABCR (OXYCONTIN) PO SCH ×2 (09:18→21:07)
[2016-07-16] MEDS: OTEZLA 30 MG PO SCH ×2 (09:18→21:07)
[2016-07-16] MEDS: BuPROPion XL 300 MG TABCR PO SCH (09:18)
[2016-07-16] MEDS: SULFASALAZINE 500 MG TAB PO SCH ×2 (09:33→17:54)
[2016-07-16] MEDS: ARIPIprazole TAB 5 MG TAB PO SCH ×2 (09:34→21:10)
[2016-07-16] MEDS: ASCORBIC ACID 500 MG TAB PO SCH ×2 (09:34→21:08)
[2016-07-16] MEDS: ASPIRIN 81 MG ECTAB PO SCH ×2 (09:34→21:09)
[2016-07-16 09:52] VITALS: O2SAT 97
[2016-07-16 11:47] VITALS: BP 128/79; PULSE 92; TEMP 36.6; O2SAT 97
[2016-07-16 15:03] VITALS: BP 126/72; PULSE 105; TEMP 36.7; O2SAT 97
[2016-07-16] MEDS: TRAMADOL HCL 50 MG TAB PO PRN (20:02)
[2016-07-16] MEDS: SENNA 8.6 MG TAB PO SCH (21:00)
[2016-07-16] MEDS: CeleBREX 200 MG CAP PO SCH (21:10)
[2016-07-16 23:38] VITALS: BP 130/74; PULSE 101; TEMP 36.6; O2SAT 97
[2016-07-17] MEDS: LEVOTHYROXINE 75 MCG TAB PO SCH (04:46)
[2016-07-17] MEDS: OXYCODONE HCL IR 5 MG TAB (IMMEDIATE RELEASE) PO PRN ×2 (04:47→12:48)
[2016-07-17 07:28] VITALS: BP 152/85; PULSE 81; TEMP 36.6; O2SAT 96
[2016-07-17] MEDS: TRAMADOL HCL 50 MG TAB PO PRN (07:39)
[2016-07-17] MEDS: CeleBREX 200 MG CAP PO SCH (08:41)
[2016-07-17] MEDS: ASPIRIN 81 MG ECTAB PO SCH (08:41)
[2016-07-17] MEDS: BuPROPion XL 150 MG TABCR PO SCH (08:42)
[2016-07-17] MEDS: SULFASALAZINE 500 MG TAB PO SCH (08:42)
[2016-07-17] MEDS: MULTIVITAMIN TAB PO SCH (08:42)
[2016-07-17] MEDS: ASCORBIC ACID 500 MG TAB PO SCH (08:42)
[2016-07-17] MEDS: PANTOprazole SOD 40 MG TAB PO SCH (08:42)
[2016-07-17] MEDS: BuPROPion XL 300 MG TABCR PO SCH (08:43)
[2016-07-17] MEDS: OTEZLA 30 MG PO SCH (08:44)
[2016-07-17] MEDS: OXYCODONE HCL 10 MG TABCR (OXYCONTIN) PO SCH (08:47)
[2016-07-17] MEDS: ARIPIprazole TAB 5 MG TAB PO SCH (08:48)
[2016-07-17 11:09] VITALS: BP 133/78; PULSE 92; O2SAT 97
--- NOTE | 2016-07-17 11:09 | Orthopedic Progress Note ---
Orthopedic Progress Note Date of Service Jul 17, 2016. Subjective Post OP Day: 3 Reports: feeling well (Pt just returned from walking down [place] with [employer]IR, walking well with wheeled walker) Objective N/V intact, dressing C/D/I (Prevena in place), toes mobile Date Time Temp Pulse Resp B/P Pulse Ox O2 Delivery O2 Flow Rate FiO2 07/17/16 07:40 Room Air 07/17/16 07:28 36.6 81 18 152/85 96 Room Air 07/16/16 23:50 Room Air 07/16/16 23:38 36.6 101 18 130/74 97 Room Air 07/16/16 16:00 Room Air 07/16/16 15:03 36.7 105 16 126/72 97 Room Air 07/16/16 11:47 36.6 92 18 128/79 97 Room Air Assessment & Plan Assessment: POD 3 s/p left TKA HX ANXIETY BIPOLAR Plan: D/C to [facility] today Discharge Planning Discharge Planning: rehab hospital Pain Management: Celebrex, Oxycontin, PO Tylenol, Oxy IR DVT Prophylaxis: TEDs, SCDs, ASA Therapy: Physical Therapy
[2016-07-17 11:15] VITALS: BP 152/85; PULSE 81; TEMP 36.6; O2SAT 96
== END 2016-07-17 13:26 | DRG 470 ==
LOC: ENRESERVTM → ENRESERVDT → ENRESERV → C.ACU 09:12 → C.3E 11:00
PROVIDERS: ADMIT Orthopaedic Surgery; ATTEND Orthopaedic Surgery
PROC: 0SRD0J9 Replacement of Left Knee Joint with Synthetic Substitute, Cemented, Open Approach (ICD-10-PCS; principal; 2016-07-14 12:00)
DX: M17.12 Unilateral primary osteoarthritis, left knee (principal); F31.9 Bipolar disorder, unspecified; E03.9 Hypothyroidism, unspecified; K21.9 Gastro-esophageal reflux disease without esophagitis; M81.0 Age-related osteoporosis without current pathological fracture; L40.50 Arthropathic psoriasis, unspecified; Z96.651 Presence of right artificial knee joint; Z96.643 Presence of artificial hip joint, bilateral; E66.9 Obesity, unspecified; Z68.33 Body mass index [BMI] 33.0-33.9, adult; D64.9 Anemia, unspecified; E11.9 Type 2 diabetes mellitus without complications; Z79.899 Other long term (current) drug therapy; Z79.1 Long term (current) use of non-steroidal anti-inflammatories (NSAID); Z79.52 Long term (current) use of systemic steroids

== ENCOUNTER → 2016-10-24 | Outpatient (CLI) | payer OTHER ==
[~2016-10-24] MED LIST changes: +ACET-1138 PO; -ACETAMINOPHEN 500 MG TAB PO SCH; -ARIPIprazole TAB 5 MG TAB PO SCH; +ASPCH81X PO; +BIOT1CAP8 PO; -BUPIVACAINE 0.25% 30 ML VIAL ONE; -BUPIVACAINE 0.5 % 5 MG/1 ML PF 10ML VIAL ONE; +BUPR-79 PO; -BuPROPion XL 150 MG TABCR PO SCH; +CALC600T9 PO; -CEFAZOLIN 2000 MG/60 ML D5W 60 ML IV SCH; -CeleBREX 200 MG CAP PO SCH; +DICL1GEL12 EXT; -FAMOTIDINE 20 MG TAB PO SCH; -FENTANYL CITRATE INJ 50 MCG/1 ML 2 ML VIAL ONE; -GABAPENTIN 300 MG CAP PO SCH; -GUAI1TAB75 PO; -HYDROCORTISONE IV 100 MG in SYRINGE 0 ML IV SCH; -LACTATED RINGER'S 1000ML 1,000 ML IV SCH; -LACTATED RINGER'S 1000ML 500 ML IV ONE; -LACTATED RINGER'S 1000ML IV SCH; +LAMO200T PO; +LEVO88TA3 PO; -LIDOCAINE HCL 2% 2 ML VIAL (20MG/ML) ONE; +LIDOCAINE PATCH EXT; -METOCLOPRAMIDE HCL 10 MG TAB PO SCH; -MIDAZOLAM HCL 1 MG/ML 2ML VIAL ONE; +OMEG10007 PO; +ONDA8TAB6 PO; -ONDANSETRON INJ 2 MG/ML 2 ML VIAL ONE; -OXYCODONE HCL 10 MG TABCR (OXYCONTIN) PO SCH; -POLYMYXIN B SULFATE 100,000 UNITS in NSS 100ML IR SCH; +PRLSR20 PO; -PROPOFOL IV EMULSION 10 MG/ML 20 ML VIAL IV ONE; -ROPIVACAINE 5MG/ML 30 ML 150 MG, BUPIVACAINE/EPINEPHR 0.5% MPF 30 ML, KETOROLAC TROMETH... INFIL SCH; +RXC5 PO; +SECU1INJ3 INJ; +SNK PO; -VANCOMYCIN INJ 400 MG in NSS 100ML IR SCH; +VITAMIN C PO
--- NOTE | 2016-10-24 13:30 | DIAGNOSTIC IMAGING REPORT ---
CHEST 2 VIEWS ROUTINE CLINICAL HISTORY: COUGH COMPARISON STUDY: 04/09/2016 FINDINGS: The cardiac and mediastinal contours are normal. There is no evidence of focal pulmonary consolidation. There is no evidence of failure. No pleural effusions are visualized.[ Old right-sided rib fractures are visualized. There are advanced arthritic changes within the shoulders. IMPRESSION: No active disease in the chest. Electronically signed by: Azar Martinez M.D. 10/24/2016 1:29 PM Dictated Date/Time: 10/24/2016 1:29 PM
== END | disposition home or self-care (01) ==
LOC: C.RAD 13:07
PROVIDERS: ATTEND Internal Medicine
DX: R05 Cough (principal)

== ENCOUNTER → 2017-03-24 | Outpatient (CLI) | payer OTHER ==
[~2017-03-24] MED LIST changes: -ASPCH81X PO; -BIOT1CAP8 PO; -BUPR-79 PO; -CALC600T9 PO; -DICL1GEL12 EXT; -LAMO200T PO; -LEVO88TA3 PO; -LIDOCAINE PATCH EXT; -OMEG10007 PO; -ONDA8TAB6 PO; -PRLSR20 PO; -SECU1INJ3 INJ; -VITAMIN C PO
[2017-03-24 15:30] LABS: THYROID STIMULATING HORMONE 0.83 uIu/ml (0.300-4.500)
== END | disposition home or self-care (01) ==
LOC: C.LABSPEC 14:50
PROVIDERS: ATTEND Internal Medicine
DX: E03.9 Hypothyroidism, unspecified (principal)

== ENCOUNTER → 2017-07-06 | Outpatient (CLI) | payer OTHER ==
[~2017-07-06] MED LIST changes: -ACET-1138 PO; -APRE1TAB3 PO; -ASCA500 PO; +ASPCH81X PO; -ASPI81TA28 PO; +BIOT1CAP8 PO; +BUPR-79 PO; -BUPRTAB PO; -CALC500T68 PO; +CALC600T9 PO; +DICL1GEL12 EXT; -LAMO100T16 PO; +LAMO200T PO; -LEVO75TA PO; +LEVO88TA3 PO; -LIDO5DIS10 TD; +LIDOCAINE PATCH EXT; +OMEG10007 PO; -OMEGCAP2 PO; -OMEP20CA9 PO; -POLY335040 PO; +PRLSR20 PO; -RXC5 PO; +SECU1INJ3 INJ; -SNK PO; +VITAMIN C PO; -VOLTAREN GEL TOP; -[UNRECOGNIZED DRUG - CODE] PO
--- NOTE | 2017-07-06 15:09 | MAMMOGRAPHY REPORT ---
BILATERAL DIGITAL SCREENING MAMMOGRAM TOMOSYNTHESIS WITH CAD: 07/06/2017 CLINICAL HISTORY: Routine screening. Patient has no complaints. TECHNIQUE: Breast tomosynthesis in addition to standard 2D mammography was performed. Current study was also evaluated with a Computer Aided Detection (CAD) system. COMPARISON: Comparison is made to exams dated: 07/03/2016 mammogram, 06/07/2015 mammogram, 01/26/2014 m ammogram, 01/13/2013 mammogram, 01/13/2012 mammogram, and 10/04/2010 mammogram - [facility]. BREAST COMPOSITION: The tissue of both breasts is heterogeneously dense, which may obscure small mas ses. FINDINGS: The parenchymal pattern is similar to prior mammograms. There are scattered benign rim ca lcifications and mild vascular calcifications in the breasts. No developing mass, architectural dist ortion or cluster of suspicious microcalcifications is seen. IMPRESSION: ACR BI-RADS CATEGORY 2: BENIGN There is no mammographic evidence of malignancy. A 1 year screening mammogram is recommended. The pa tient will receive written notification of the results. Approximately 10% of breast cancers are not detected with mammography. A negative mammographic report should not delay biopsy if a clinically suggestive mass is present. Olga Mohr M.D. ay/:07/06/2017 13:23:38 Damper Fitter: Mariposa FISCHER)(M), [facility] letter sent: Normal 1/2 BI-RADS Code: ACR BI-RADS Category 2: Benign
== END | disposition home or self-care (01) ==
LOC: C.MAMM 12:47
PROVIDERS: ATTEND Physician Assistant
DX: Z12.31 Encounter for screening mammogram for malignant neoplasm of breast (principal)

== ENCOUNTER → 2017-08-17 | Outpatient (CLI) | payer OTHER | END | disposition home or self-care (01) | LOC: C.LAB1850 11:17 | PROVIDERS: ATTEND Psychiatry & Neurology Psychiatry | DX: Z79.899 Other long term (current) drug therapy (principal) ==

== ENCOUNTER → 2017-09-21 | Outpatient (CLI) | payer OTHER | END | disposition home or self-care (01) | LOC: C.LABSPEC 16:44 | PROVIDERS: ATTEND Internal Medicine | DX: E03.9 Hypothyroidism, unspecified (principal) ==